=== PATIENT | female | born 1980 | race Caucasian/White ===

== ENCOUNTER 2019-09-24 23:23 | Emergency (ER) | payer OTHER ==
[~2019-09-24] VITALS: Ht 157.5 cm; Wt 86.6 kg
[2019-09-24 23:58] VITALS: Ht 157.5 cm; Wt 86.6 kg
[2019-09-25 02:35] VITALS: BP 121/83
== END 2019-09-25 01:37 | disposition home or self-care (01) ==
LOC: ED 23:23
DX: S09.90XA Unspecified injury of head, initial encounter (principal); R04.0 Epistaxis; J45.909 Unspecified asthma, uncomplicated; F17.210 Nicotine dependence, cigarettes, uncomplicated; E11.9 Type 2 diabetes mellitus without complications; Z88.0 Allergy status to penicillin; Z88.1 Allergy status to other antibiotic agents; Y04.8XXA Assault by other bodily force, initial encounter; Y93.89 Activity, other specified; Y92.89 Other specified places as the place of occurrence of the external cause; Y99.8 Other external cause status
CPT/HCPCS: 82962; 90715; 99406